=== PATIENT | female | born 1965 | race Caucasian/White ===

== ENCOUNTER 2022-08-16 08:00 | Outpatient (RCR) | payer BC | END 2022-08-21 | LOC: PT 08:00 | PROVIDERS: ATTEND Physician Assistant | DX: M53.3 Sacrococcygeal disorders, not elsewhere classified (principal) ==

== ENCOUNTER 2022-08-23 07:49 | Outpatient (RCR) | payer BC | END 2022-09-20 | LOC: PT 07:49 | PROVIDERS: ATTEND Physician Assistant | DX: M53.3 Sacrococcygeal disorders, not elsewhere classified (principal) ==

== ENCOUNTER 2024-09-15 15:52 | Outpatient (RCR) | payer BC | END 2024-09-20 | LOC: PT 15:52 | PROVIDERS: ATTEND Nurse Practitioner Family | DX: M71.551 Other bursitis, not elsewhere classified, right hip (principal) ==